=== PATIENT | male | born 2000 | race Caucasian/White ===

== ENCOUNTER 2025-01-12 15:25 | Emergency (ER) | payer MEDICAID ==
[~2025-01-12] VITALS: Ht 182.9 cm; Wt 175.0 kg
[2025-01-12 15:33] VITALS: O2SAT 97
[2025-01-12 15:38] VITALS: TEMP 37.1; O2SAT 98
[2025-01-12] MEDS ORDERED: LIDO-53 TP (16:19)
[2025-01-12] MEDS ORDERED: NAPR-681 MT (16:19)
[2025-01-12 16:48] VITALS: BP 133/89; PULSE 83; RESP 16
[2025-01-12] MEDS: LIDOCAINE 5% PATCH TOP SCH (16:48)
[2025-01-12] MEDS: KETOROLAC 30MG/ML VIAL IM ONE (16:48)
== END 2025-01-12 16:49 | disposition home or self-care (01) ==
LOC: ER 15:25
DX: M54.2 Cervicalgia (principal); J45.909 Unspecified asthma, uncomplicated; Z79.1 Long term (current) use of non-steroidal anti-inflammatories (NSAID)
CPT/HCPCS: 99283; 96372; J1885